=== PATIENT | female | born 1980 | race Caucasian/White ===

== ENCOUNTER 2024-08-20 18:57 | Inpatient (IN) | payer MEDICAID ==
[~2024-08-20] VITALS: Ht 165.1 cm; Wt 55.0 kg
[~2024-08-20 18:57] MED LIST: CEFT2FRO2 IV; DEXL60CA3 PO; FENT1PAT13 TD; HYDR-4353 PO; LUBI8CAP PO; ONDA8TAB9 PO; POTA20IV IV
[2024-08-20 19:19] LABS: BILIRUBIN,URINE NEGATIVE (Neg); CLARITY,URINE CLEAR (Clear); COLOR,URINE YELLOW (Yellow); GLUCOSE, URINE NEGATIVE (Neg); KETONES,URINE NEGATIVE (Neg); LEUKOCYTE ESTERASE ,URINE NEGATIVE (Neg); NITRITES, URINE NEGATIVE (Neg); OCCULT BLOOD,URINE SMALL (Neg); PH,URINE 6.5 (4.8-8.0); PROTEIN,URINE TRACE mg/dl (Neg); UROBILINOGEN,URINE 0.2 E.U/dL (0.2-1.0)
[2024-08-20 19:20] LABS: URINE HCG NEGATIVE (NEG)
[2024-08-20] MEDS: normal saline 500ml IV soln 500 ML IV SCH (19:25)
[2024-08-20 19:26] LABS: UA COLLECTION TYPE CLN CATCH MIDSTREAM
[2024-08-20 19:27] LABS: SQUAMOUS EPITHELIAL CELL,UR MODERATE /LPF (FEW)
[2024-08-20 19:29] LABS: BACTERIA,URINE 1+ /HPF (Neg); MUCUS STRANDS FEW /LPF (Neg); RBC,URINE 0-2 /HPF (0-2); WBC,URINE 0-4 /HPF (0-4)
[2024-08-20] MEDS: pantoprazole 40 MG vial IV STA (19:34)
[2024-08-20] MEDS: ondansetron/PF 4mg/2ml inj IV ONE ×2 (19:35→22:30)
[2024-08-20] MEDS: morphine 4 MG/ML inj SYRINge IV ONE (19:35)
[2024-08-20 20:09] LABS: BASOPHILS % (AUTO) 0.1 % (0-1); EOSINOPHILS % (AUTO) 0 % (0-6); HEMATOCRIT 34.5 % (35.0-45.0); HEMOGLOBIN 11.7 g/dl (12.0-16.0); LYMPHOCYTES # (AUTO) 0.2 X10'3 (1.1-4.8); MEAN CORPUSCULAR HEMOGLOBIN 36.6 PG (27.0-31.0); MEAN CORPUSCULAR HGB CONC 33.9 g/dL (33.0-36.5); MEAN CORPUSCULAR VOLUME 107.9 FL (78-98); MEAN PLATELET VOLUME 7.3 FL (7.4-10.4); MONOCYTES # (AUTO) 0.5 X10'3 (0-0.9); MONOCYTES % (AUTO) 4.1 % (2-12); NEUTROPHILS # (AUTO) 10.4 X10'3 (1.8-7.7); NEUTROPHILS % (AUTO) 93.8 % (42-75); PLATELET COUNT 176 X10'3 (140-440); WHITE BLOOD COUNT 11.1 X10'3 (4.5-11.0)
[2024-08-20 20:26] LABS: ALANINE AMINOTRANSFERASE 24 U/L (12-78); ALBUMIN 3.1 G/DL (3.4-5.0); ALBUMIN/GLOBULIN RATIO 1.1 (1.1-1.5); ALKALINE PHOSPHATASE 64 IU/L (46-116); ANION GAP 13 (8-16); ASPARTATE AMINO TRANSFERASE 40 U/L (10-37); BILIRUBIN,TOTAL 1.3 MG/DL (0.1-1.0); BLOOD UREA NITROGEN 5 MG/DL (7-18); BUN/CREATININE RATIO 4.4 (10.0-20.0); CALCIUM 7.6 MG/DL (8.5-10.1); CHLORIDE 108 MMOL/L (99-107); CREATININE 1.14 MG/DL (0.40-0.90); GLUCOSE 150 MG/DL (70-104); SODIUM 144 MMOL/L (135-145); TOTAL PROTEIN 5.8 G/DL (6.4-8.2); eCRCL 56 ML/MIN; eGFR 53 ML/MIN
[2024-08-20 20:27] LABS: LIPASE > 375 U/L (16-77)
[2024-08-20 20:29] LABS: POTASSIUM 2.3 MMOL/L (3.5-5.1)
[2024-08-20] MEDS: ondansetron 4mg rapidly disintigrating tab PO ONE (20:51)
[2024-08-20] MEDS: HYDROmorphone 1 mg/ml syringe IM ONE (20:54)
[2024-08-20 21:02] LABS: ANISOCYTOSIS 2+; PLATELET ESTIMATE NORMAL; POLYCHROMASIA FEW; STOMATOCYTES FEW
[2024-08-20] MEDS: loperamide 2mg capsule PO STA (21:29)
[2024-08-20] MEDS: pantoprazole 40mg Tablet.DR PO STA (21:29)
[2024-08-20] MEDS: POTASSIUM CHLORIDE 20 MEQ/15 ML oral solution PO STA (21:30)
[2024-08-20] MEDS ORDERED: iohexol 300mg/ml 100ml inj. ONE (22:25)
[2024-08-20] MEDS: HYDROmorphone 1 mg/ml syringe IV ONE (22:31)
[2024-08-20] MEDS: potassium CL 10mEq/100ml bag 100 ML IV SCH (22:42)
[2024-08-20] MEDS ORDERED: ertapenem sod inj 1 GM in normal saline 100ml IV soln 100 ML IV SCH (23:40)
[2024-08-21 00:03] LABS: ETHANOL < 10 MG/DL (<10); MAGNESIUM 1.6 MG/DL (1.5-2.4)
[2024-08-21] MEDS: folic acid 1mg tablet PO ONE (00:10)
[2024-08-21] MEDS: thiamine 100mg tablet PO ONE (00:10)
[2024-08-21] MEDS ORDERED: acetaminophen 325mg tablet PO PRN (00:35)
[2024-08-21] MEDS ORDERED: morphine 2 MG/ML inj. syringe IV PRN ×3 (00:35→05:05)
[2024-08-21] MEDS ORDERED: potassium Cl 20 mEq SR tablet PO PRN (00:35)
[2024-08-21] MEDS ORDERED: HYDROmorphone/PF 0.2 MG/ML SYRINGE IV PRN ×2 (00:35→05:05)
[2024-08-21] MEDS ORDERED: magnesium Cl slow-release 64mg tablet PO PRN (00:35)
[2024-08-21] MEDS ORDERED: magnesium hydroxide 30ml (MOM) UD suspension PO PRN (00:35)
[2024-08-21] MEDS ORDERED: magnesium sulf-water 2g/50mL 50 ML IV PRN (00:35)
[2024-08-21] MEDS ORDERED: magnesium sulf-water 4G/100mL 100 ML IV PRN (00:35)
[2024-08-21] MEDS: ringers solution, lacted 1,000 ML IV ONE ×2 (00:51)
[2024-08-21] MEDS: HYDROmorphone 1 mg/ml syringe IV ONE (00:54)
[2024-08-21 01:14] LABS: URINE AMPHETAMINE SCREEN NEGATIVE (Neg); URINE BARBITUATE SCREEN POSITIVE (Neg); URINE BENZODIAZEPINES SCREEN NEGATIVE (Neg); URINE CANNABINOID SCREEN NEGATIVE (Neg); URINE COCAINE SCREEN NEGATIVE (Neg); URINE METHADONE SCREEN NEGATIVE (Neg); URINE OPIATE SCREEN POSITIVE (Neg); URINE PHENCYCLIDINE SCREEN NEGATIVE (Neg)
[2024-08-21] MEDS ORDERED: dicyclomine 10 MG capsule PO PRN (01:15)
[2024-08-21] MEDS ORDERED: haloperidol 5mg tablet PO PRN (01:15)
[2024-08-21] MEDS ORDERED: haloperidol lactate 5mg/ml inj IM PRN (01:15)
[2024-08-21] MEDS: folic acid 1mg/0.2ml inj IV SCH (01:23)
[2024-08-21] MEDS: thiamine 100mg/ml 2ml inj. IV SCH (01:23)
[2024-08-21] MEDS ORDERED: codeine/proMETHazine 5ml UD syrup PO PRN (01:45)
[2024-08-21] MEDS: hydrALAZINE 20mg/ml inj. IV ONE ×3 (01:57→11:57)
[2024-08-21] MEDS: traMADol 50MG tablet PO ONE (02:12)
[2024-08-21] MEDS: ondansetron/PF 4mg/2ml inj IV PRN (02:19)
[2024-08-21] MEDS: acetaminophen 1,000mg/100ml IV 100 ML IV ONE (02:44)
[2024-08-21 03:11] LABS: CHOL/HDL RATIO 1.5 (0.00-4.99); CHOLESTEROL 124 MG/DL (0-200); HDL CHOLESTEROL 85 MG/DL (35-60); LDL CHOLESTEROL 27 MG/DL (50-100); MAGNESIUM 1.6 MG/DL (1.5-2.4); TRIGLYCERIDES 55 MG/DL (20-135)
[2024-08-21 03:15] LABS: POTASSIUM 2.2 MMOL/L (3.5-5.1)
[2024-08-21] MEDS: potassium CL 10mEq/100ml bag 100 ML IV SCH (03:38)
[2024-08-21] MEDS: cloNIDine 0.1 mg tablet PO PRN (04:47)
[2024-08-21] MEDS ORDERED: HYDROmorphone inj. 0.5 MG/0.5 ML DISP.SYRIN IV PRN (05:05)
[2024-08-21] MEDS: LORazepam 2 mg/ml vial IV PRN (05:17)
[2024-08-21] MEDS: ertapenem sod inj 1 GM in normal saline 100ml IV soln 110 ML IV SCH ×2 (05:26→16:58)
[2024-08-21] MEDS ORDERED: Potassium Cl inj 40 MEQ in normal saline 250ml IV soln 250 ML IV ONE (06:30)
[2024-08-21] MEDS: Potassium Cl 40 MEQ in sodium chloride 0.45% 500 ML IV ONE (07:11)
[2024-08-21] MEDS: K and/or MAG REPLACEMENT MC SCH (07:17)
[2024-08-21] MEDS: docusate sod 100mg capsule PO SCH (07:17)
[2024-08-21] MEDS: potassium chloride 8mEq ER tablet PO SCH (08:00)
[2024-08-21] MEDS: enoxaparin 40mg/0.4ml syringe SUBCUT SCH (08:15)
[2024-08-21] MEDS ORDERED: NO HOME MEDS (09:49)
[2024-08-21] MEDS: potassium Cl 40MEQ/1/2NS 520ml 520 ML IV PRN (12:05)
[2024-08-21] MEDS: ringers solution, lacted 1,000 ML IV SCH (12:19)
[2024-08-21] MEDS: VANCOMYCIN 125 MG/5 ML oral SOLN.RECON 5mL UD syringe (FIRVANQ) PO SCH (12:51)
[2024-08-21 14:26] LABS: BASOPHILS % (AUTO) 0.2 % (0-1); EOSINOPHILS % (AUTO) 0 % (0-6); HEMATOCRIT 34.6 % (35.0-45.0); HEMOGLOBIN 11.6 g/dl (12.0-16.0); LYMPHOCYTES # (AUTO) 0.5 X10'3 (1.1-4.8); LYMPHOCYTES % (AUTO) 3.2 % (21-51); MEAN CORPUSCULAR HEMOGLOBIN 36.8 PG (27.0-31.0); MEAN CORPUSCULAR HGB CONC 33.4 g/dL (33.0-36.5); MEAN PLATELET VOLUME 7.9 FL (7.4-10.4); MONOCYTES # (AUTO) 0.6 X10'3 (0-0.9); NEUTROPHILS # (AUTO) 13.3 X10'3 (1.8-7.7); NEUTROPHILS % (AUTO) 92.6 % (42-75); PLATELET COUNT 152 X10'3 (140-440); RED BLOOD COUNT 3.15 X10'6 (4.20-5.60); RED CELL DISTRIBUTION WIDTH 19.1 % (11.5-14.5); WHITE BLOOD COUNT 14.4 X10'3 (4.5-11.0)
[2024-08-21 14:41] LABS: ALANINE AMINOTRANSFERASE 15 U/L (12-78); ALBUMIN 2.7 G/DL (3.4-5.0); ALBUMIN/GLOBULIN RATIO 0.9 (1.1-1.5); ALKALINE PHOSPHATASE 58 IU/L (46-116); ANION GAP 9 (8-16); ASPARTATE AMINO TRANSFERASE 37 U/L (10-37); BILIRUBIN,TOTAL 1.4 MG/DL (0.1-1.0); BLOOD UREA NITROGEN 2 MG/DL (7-18); BUN/CREATININE RATIO 2.4 (10.0-20.0); CALCIUM 7.3 MG/DL (8.5-10.1); CHLORIDE 109 MMOL/L (99-107); CREATININE 0.83 MG/DL (0.40-0.90); GLUCOSE 97 MG/DL (70-104); SODIUM 142 MMOL/L (135-145); TOTAL CARBON DIOXIDE 24.3 MMOL/L (24-32); TOTAL PROTEIN 5.6 G/DL (6.4-8.2); eCRCL 77 ML/MIN; eGFR 76 ML/MIN
[2024-08-21 14:49] LABS: POTASSIUM 2.4 MMOL/L (3.5-5.1)
[2024-08-21] MEDS ORDERED: ertapenem sod inj 1 GM in normal saline 100ml IV soln 100 ML IV SCH (16:10)
[2024-08-21] MEDS ORDERED: ertapenem sod inj 1 GM in normal saline 100ml IV soln 110 ML IV SCH (16:12)
[2024-08-21 20:00] VITALS: RESP 20; O2SAT 99
[2024-08-21] MEDS: morphine 2 MG/ML inj. syringe IV PRN (20:35)
[2024-08-21] MEDS: potassium Cl 20 mEq SR tablet PO PRN (20:37)
[2024-08-21 22:00] VITALS: BP 161/102; PULSE 101; RESP 20; TEMP 100.5; O2SAT 99
[2024-08-22] VITALS (8 sets, daily range): BP systolic 151–164; BP diastolic 96–107; PULSE 98–109; RESP 15–22; TEMP 98.3–99.5; O2SAT 95–100
[2024-08-22] MEDS: HYDROmorphone inj. 0.5 MG/0.5 ML DISP.SYRIN IV PRN (02:25)
[2024-08-22 06:36] LABS: INR 1.1 INR; PROTHROMBIN TIME 11.5 SECONDS (9.0-12.0)
[2024-08-22 06:55] LABS: ALANINE AMINOTRANSFERASE 11 U/L (12-78); ALBUMIN 2.1 G/DL (3.4-5.0); ALBUMIN/GLOBULIN RATIO 0.8 (1.1-1.5); ALKALINE PHOSPHATASE 50 IU/L (46-116); AMYLASE 168 U/L (25-115); ANION GAP 6 (8-16); ASPARTATE AMINO TRANSFERASE 32 U/L (10-37); BILIRUBIN,TOTAL 1.2 MG/DL (0.1-1.0); BLOOD UREA NITROGEN 3 MG/DL (7-18); BUN/CREATININE RATIO 4.5 (10.0-20.0); CHLORIDE 109 MMOL/L (99-107); CREATININE 0.66 MG/DL (0.40-0.90); GLUCOSE 76 MG/DL (70-104); LIPASE 354 U/L (16-77); MAGNESIUM 1.5 MG/DL (1.5-2.4); PHOSPHORUS 2.1 MG/DL (2.3-4.5); SODIUM 142 MMOL/L (135-145); TOTAL CARBON DIOXIDE 27.2 MMOL/L (24-32); TOTAL PROTEIN 4.9 G/DL (6.4-8.2); eCRCL 97 ML/MIN; eGFR > 90 ML/MIN
[2024-08-22 07:01] LABS: BASOPHILS % (AUTO) 0.1 % (0-1); EOSINOPHILS % (AUTO) 0 % (0-6); HEMATOCRIT 31.7 % (35.0-45.0); HEMOGLOBIN 10.6 g/dl (12.0-16.0); LYMPHOCYTES # (AUTO) 0.6 X10'3 (1.1-4.8); LYMPHOCYTES % (AUTO) 5.9 % (21-51); MEAN CORPUSCULAR HEMOGLOBIN 36.9 PG (27.0-31.0); MEAN CORPUSCULAR HGB CONC 33.4 g/dL (33.0-36.5); MEAN CORPUSCULAR VOLUME 110.7 FL (78-98); MEAN PLATELET VOLUME 8.5 FL (7.4-10.4); MONOCYTES # (AUTO) 0.4 X10'3 (0-0.9); MONOCYTES % (AUTO) 3.7 % (2-12); NEUTROPHILS # (AUTO) 9.8 X10'3 (1.8-7.7); NEUTROPHILS % (AUTO) 90.3 % (42-75); PLATELET COUNT 107 X10'3 (140-440); RED BLOOD COUNT 2.86 X10'6 (4.20-5.60); RED CELL DISTRIBUTION WIDTH 18.9 % (11.5-14.5); WHITE BLOOD COUNT 10.9 X10'3 (4.5-11.0)
[2024-08-22 07:21] LABS: POTASSIUM 2.3 MMOL/L (3.5-5.1)
[2024-08-22 10:07] LABS: PLATELET ESTIMATE DECREASED
[2024-08-22 10:13] LABS: ANISOCYTOSIS 2+; HYPOCHROMASIA 1+
[2024-08-22 10:16] LABS: POIKILOCYTOSIS FEW; POLYCHROMASIA FEW; STOMATOCYTES FEW
[2024-08-22] MEDS: potassium 20mEq/D5LR 1,000 ML IV SCH (11:14)
[2024-08-22 14:42] LABS: OCCULT BLOOD STOOL NEGATIVE (Neg)
[2024-08-22 15:18] LABS: C DIFF ANTIGEN NEGATIVE (NEGATIVE); C DIFF SPECIMEN=DIARRHEA? ACCEPTABLE; C DIFFICILE TOXINS A&B NEGATIVE (Neg)
[2024-08-22] MEDS ORDERED: sodium phosphate inj. 15 MMOL in dextrose 5%-water 250 ML IV PRN (16:55)
[2024-08-22] MEDS ORDERED: calcium gluconate inj. 3 GM in normal saline 100ml IV soln 100 ML IV ONE (16:55)
[2024-08-22] MEDS ORDERED: sodium phosphate inj. 30 MMOL in dextrose 5%-water 250 ML IV PRN (16:55)
[2024-08-22] MEDS ORDERED: Neutra Phos packet PO PRN (16:55)
[2024-08-22] MEDS ORDERED: HYDROcodone/acetaminophen 5mg/325mg tablet 1/2 TAB PO PRN (19:10)
[2024-08-22] MEDS: HYDROcodone/acetaminophen 10/325mg tab PO PRN (19:30)
[2024-08-22] MEDS: calcium gluconate inj. 3 GM in normal saline 100ml IV soln 70 ML IV ONE (20:42)
[2024-08-23] MEDS: LORazepam 2 mg/ml vial IV PRN (02:50)
[2024-08-23 06:00] LABS: BASOPHILS % (AUTO) 0.3 % (0-1); EOSINOPHILS % (AUTO) 0 % (0-6); HEMATOCRIT 26.3 % (35.0-45.0); HEMOGLOBIN 8.6 g/dl (12.0-16.0); LYMPHOCYTES # (AUTO) 0.8 X10'3 (1.1-4.8); MEAN CORPUSCULAR HEMOGLOBIN 36.8 PG (27.0-31.0); MEAN CORPUSCULAR HGB CONC 32.9 g/dL (33.0-36.5); MEAN CORPUSCULAR VOLUME 111.9 FL (78-98); MEAN PLATELET VOLUME 8.4 FL (7.4-10.4); MONOCYTES # (AUTO) 0.3 X10'3 (0-0.9); MONOCYTES % (AUTO) 4.2 % (2-12); NEUTROPHILS # (AUTO) 6.2 X10'3 (1.8-7.7); NEUTROPHILS % (AUTO) 84.5 % (42-75); PLATELET COUNT 113 X10'3 (140-440); RED BLOOD COUNT 2.35 X10'6 (4.20-5.60); RED CELL DISTRIBUTION WIDTH 17.6 % (11.5-14.5); WHITE BLOOD COUNT 7.3 X10'3 (4.5-11.0)
[2024-08-23 06:14] LABS: INR 1.1 INR; PROTHROMBIN TIME 11.4 SECONDS (9.0-12.0)
[2024-08-23 06:34] LABS: ALANINE AMINOTRANSFERASE 8 U/L (12-78); ALBUMIN 1.7 G/DL (3.4-5.0); ALBUMIN/GLOBULIN RATIO 0.6 (1.1-1.5); ALKALINE PHOSPHATASE 38 IU/L (46-116); AMYLASE 91 U/L (25-115); ANION GAP 3 (8-16); ASPARTATE AMINO TRANSFERASE 28 U/L (10-37); BILIRUBIN,TOTAL 0.7 MG/DL (0.1-1.0); BLOOD UREA NITROGEN 3 MG/DL (7-18); BUN/CREATININE RATIO 4.5 (10.0-20.0); CALCIUM 7.7 MG/DL (8.5-10.1); CHLORIDE 112 MMOL/L (99-107); CREATININE 0.67 MG/DL (0.40-0.90); GLUCOSE 96 MG/DL (70-104); LIPASE 153 U/L (16-77); MAGNESIUM 1.6 MG/DL (1.5-2.4); POTASSIUM 4.4 MMOL/L (3.5-5.1); SODIUM 140 MMOL/L (135-145); TOTAL CARBON DIOXIDE 25.5 MMOL/L (24-32); TOTAL PROTEIN 4.6 G/DL (6.4-8.2); eCRCL 96 ML/MIN; eGFR > 90 ML/MIN
[2024-08-23 06:41] LABS: PHOSPHORUS 0.5 MG/DL (2.3-4.5)
[2024-08-23 07:14] VITALS: BP 130/81; PULSE 97; RESP 20; TEMP 98.6; O2SAT 98
[2024-08-23] MEDS ORDERED: sodium phosphate inj. 30 MMOL in dextrose 5%-water 250 ML IV PRN (07:35)
[2024-08-23] MEDS ORDERED: sodium phosphate inj. 15 MMOL in dextrose 5%-water 250 ML IV PRN (07:35)
[2024-08-23 08:00] VITALS: RESP 16
[2024-08-23] MEDS: sodium phosphate inj. 30 MMOL in dextrose 5%-water 250 ML IV ONE (09:35)
[2024-08-23 10:43] VITALS: RESP 20; O2SAT 98
[2024-08-23] MEDS: LORazepam 1 MG tablet PO PRN (11:05)
[2024-08-23 19:50] VITALS: RESP 16; O2SAT 98
[2024-08-23 19:56] VITALS: BP 163/111; PULSE 96; RESP 16; TEMP 98.6; O2SAT 97
[2024-08-24] VITALS (8 sets, daily range): BP systolic 133–168; BP diastolic 84–107; PULSE 76–98; RESP 15–18; TEMP 97.6–98.3; O2SAT 97–100
[2024-08-24 05:46] LABS: BASOPHILS % (AUTO) 0.2 % (0-1); EOSINOPHILS % (AUTO) 0.8 % (0-6); LYMPHOCYTES # (AUTO) 0.8 X10'3 (1.1-4.8); LYMPHOCYTES % (AUTO) 16.5 % (21-51); MEAN CORPUSCULAR HEMOGLOBIN 37.5 PG (27.0-31.0); MEAN CORPUSCULAR HGB CONC 33.5 g/dL (33.0-36.5); MEAN PLATELET VOLUME 7.9 FL (7.4-10.4); MONOCYTES # (AUTO) 0.3 X10'3 (0-0.9); MONOCYTES % (AUTO) 5.6 % (2-12); NEUTROPHILS # (AUTO) 3.6 X10'3 (1.8-7.7); NEUTROPHILS % (AUTO) 76.9 % (42-75); PLATELET COUNT 124 X10'3 (140-440); RED BLOOD COUNT 2.14 X10'6 (4.20-5.60); RED CELL DISTRIBUTION WIDTH 17.4 % (11.5-14.5); WHITE BLOOD COUNT 4.7 X10'3 (4.5-11.0)
[2024-08-24 06:17] LABS: ALANINE AMINOTRANSFERASE 11 U/L (12-78); ALBUMIN 1.6 G/DL (3.4-5.0); ALBUMIN/GLOBULIN RATIO 0.6 (1.1-1.5); ALKALINE PHOSPHATASE 38 IU/L (46-116); AMYLASE 134 U/L (25-115); ANION GAP 4 (8-16); ASPARTATE AMINO TRANSFERASE 15 U/L (10-37); BILIRUBIN,TOTAL 0.4 MG/DL (0.1-1.0); BLOOD UREA NITROGEN 2 MG/DL (7-18); BUN/CREATININE RATIO 3.3 (10.0-20.0); CALCIUM 7.4 MG/DL (8.5-10.1); CHLORIDE 109 MMOL/L (99-107); GLUCOSE 94 MG/DL (70-104); LIPASE 226 U/L (16-77); MAGNESIUM 1.4 MG/DL (1.5-2.4); POTASSIUM 4.2 MMOL/L (3.5-5.1); SODIUM 140 MMOL/L (135-145); TOTAL CARBON DIOXIDE 27.2 MMOL/L (24-32); TOTAL PROTEIN 4.3 G/DL (6.4-8.2); eCRCL 107 ML/MIN; eGFR > 90 ML/MIN
[2024-08-24 06:35] LABS: INR 1.1 INR; PROTHROMBIN TIME 11.3 SECONDS (9.0-12.0)
[2024-08-24] MEDS: Neutra Phos packet PO PRN (08:38)
[2024-08-24] MEDS: magnesium Cl slow-release 64mg tablet PO PRN (10:22)
[2024-08-24] MEDS: ringers solution, lacted 1,000 ML IV SCH (16:10)
[2024-08-24] MEDS: dextrose 5%-lactated ringers 1,000 ML IV SCH (17:38)
[2024-08-24] MEDS ORDERED: magnesium sulf-water 4G/100mL 100 ML IV PRN (20:45)
[2024-08-24] MEDS ORDERED: magnesium Cl slow-release 64mg tablet PO PRN (20:45)
[2024-08-24] MEDS ORDERED: magnesium sulf-water 2g/50mL 50 ML IV PRN (20:45)
[2024-08-24] MEDS: folic acid 1mg tablet PO SCH (20:54)
[2024-08-24] MEDS: multivitamins, therapeutics tablet PO SCH (20:55)
[2024-08-24] MEDS: thiamine 100mg tablet PO SCH (20:55)
[2024-08-25] VITALS: BP 141/89; PULSE 98; RESP 15; TEMP 98.6; O2SAT 98
[2024-08-25] MEDS ORDERED: LORazepam 2 mg/ml vial IV PRN (01:15)
[2024-08-25 06:11] LABS: BASOPHILS % (AUTO) 0.4 % (0-1); HEMATOCRIT 27.2 % (35.0-45.0); HEMOGLOBIN 9.1 g/dl (12.0-16.0); LYMPHOCYTES # (AUTO) 0.8 X10'3 (1.1-4.8); LYMPHOCYTES % (AUTO) 19.2 % (21-51); MEAN CORPUSCULAR HEMOGLOBIN 37.1 PG (27.0-31.0); MEAN CORPUSCULAR HGB CONC 33.3 g/dL (33.0-36.5); MEAN CORPUSCULAR VOLUME 111.2 FL (78-98); MEAN PLATELET VOLUME 7.8 FL (7.4-10.4); MONOCYTES # (AUTO) 0.4 X10'3 (0-0.9); MONOCYTES % (AUTO) 9.1 % (2-12); NEUTROPHILS # (AUTO) 3.1 X10'3 (1.8-7.7); NEUTROPHILS % (AUTO) 70.3 % (42-75); PLATELET COUNT 194 X10'3 (140-440); RED BLOOD COUNT 2.44 X10'6 (4.20-5.60); RED CELL DISTRIBUTION WIDTH 17.2 % (11.5-14.5); WHITE BLOOD COUNT 4.3 X10'3 (4.5-11.0)
[2024-08-25 06:18] LABS: ALANINE AMINOTRANSFERASE 11 U/L (12-78); ALBUMIN 1.8 G/DL (3.4-5.0); ALBUMIN/GLOBULIN RATIO 0.6 (1.1-1.5); ALKALINE PHOSPHATASE 45 IU/L (46-116); AMYLASE 228 U/L (25-115); ANION GAP 3 (8-16); ASPARTATE AMINO TRANSFERASE 17 U/L (10-37); BILIRUBIN,TOTAL 0.4 MG/DL (0.1-1.0); BLOOD UREA NITROGEN 0 MG/DL (7-18); CALCIUM 7.9 MG/DL (8.5-10.1); CHLORIDE 105 MMOL/L (99-107); CREATININE 0.65 MG/DL (0.40-0.90); GLUCOSE 82 MG/DL (70-104); MAGNESIUM 1.5 MG/DL (1.5-2.4); POTASSIUM 4.2 MMOL/L (3.5-5.1); SODIUM 137 MMOL/L (135-145); TOTAL CARBON DIOXIDE 28.9 MMOL/L (24-32); TOTAL PROTEIN 4.9 G/DL (6.4-8.2); eCRCL 99 ML/MIN; eGFR > 90 ML/MIN
[2024-08-25 06:37] LABS: INR 1.1 INR; PROTHROMBIN TIME 11.5 SECONDS (9.0-12.0)
[2024-08-25 07:08] VITALS: BP 130/86; PULSE 89; RESP 18; TEMP 98.3; O2SAT 98
[2024-08-25 07:11] LABS: LIPASE > 375 U/L (16-77)
[2024-08-25] MEDS: LORazepam 1 MG tablet PO PRN (07:34)
[2024-08-25] MEDS: mag hydrox/Alum hydrox/simeth 30ml oral suspension PO PRN (07:47)
[2024-08-25 07:55] VITALS: RESP 18; O2SAT 98
[2024-08-25] MEDS ORDERED: HYDROcodone/acetaminophen 5mg/325mg tablet PO PRN (09:50)
[2024-08-25 11:12] VITALS: BP 138/92; PULSE 91; RESP 16; TEMP 97.6; O2SAT 98
[2024-08-25] MEDS ORDERED: thiamine tablet PO (14:40)
[2024-08-25] MEDS ORDERED: FOLI1TAB27 PO (14:40)
[2024-08-25] MEDS ORDERED: MULT-25 PO (14:46)
[2024-08-25 14:51] VITALS: RESP 18
[2024-08-25] MEDS ORDERED: HYDR-3965 PO (15:07)
[2024-08-25 15:21] LABS: FATS, NEUTRAL Normal (.); FATS, TOTAL Normal (.)
== END 2024-08-25 15:32 | disposition home or self-care (01) | DRG 282 ==
LOC: ER 18:57 → ED HOLD 08-21 00:38 → SUR 3N 08-21 20:10
PROVIDERS: ADMIT Student in an Organized Health Care Education/Training Program; ATTEND Family Medicine
PROC: BW251ZZ Computerized Tomography (CT Scan) of Chest, Abdomen and Pelvis using Low Osmolar Contrast (ICD-10-PCS; principal; 2024-08-20)
DX: K85.21 Alcohol induced acute pancreatitis with uninfected necrosis (principal); N17.9 Acute kidney failure, unspecified; F10.131 Alcohol abuse with withdrawal delirium; E87.8 Other disorders of electrolyte and fluid balance, not elsewhere classified; E83.39 Other disorders of phosphorus metabolism; E86.0 Dehydration; D53.9 Nutritional anemia, unspecified; E87.6 Hypokalemia; Y90.0 Blood alcohol level of less than 20 mg/100 ml; R73.9 Hyperglycemia, unspecified; I10 Essential (primary) hypertension; K52.9 Noninfective gastroenteritis and colitis, unspecified; E83.42 Hypomagnesemia; K92.1 Melena; Z88.1 Allergy status to other antibiotic agents; Z88.8 Allergy status to other drugs, medicaments and biological substances; Z91.018 Allergy to other foods
CPT/HCPCS: 36415; 71260; 74177; 76700; 80053; 80061; 80305; 80320; 81001; 81025; 82150; 82272; 82948; 83605; 83690; 83735; 84100; 84132; 84145; 85008; 85025; 85610; 87040; 87081; 87324; 87449; 89055; 96374; 96375; 97116; 97161; 97530; 99285; G0378; J0131; J0360; J0610; J1171; J1335; J1650; J2060; J2270; J2405; J3411; J3480; J3490; J7030; J7040; J7060; J7120; J7121; Q9967

== ENCOUNTER 2025-05-11 10:41 | Inpatient (IN) | payer MEDICAID ==
[~2025-05-11] VITALS: Ht 165.1 cm; Wt 40.4 kg
[~2025-05-11 10:41] MED LIST changes: -CEFT2FRO2 IV; -DEXL60CA3 PO; -FENT1PAT13 TD; +FOLI1TAB27 PO; -HYDR-4353 PO; -LUBI8CAP PO; +MULT-25 PO; +NO HOME MEDS; -ONDA8TAB9 PO; -POTA20IV IV; +thiamine tablet PO
[2025-05-11 11:41] LABS: MEAN PLATELET VOLUME 8.3 FL (7.4-10.4); RED CELL DISTRIBUTION WIDTH 14.4 % (11.5-14.5)
[2025-05-11 11:50] LABS: INR 1.5 INR
[2025-05-11 11:55] LABS: CREATININE 1.08 MG/DL (0.40-0.90); TOTAL CARBON DIOXIDE 30.7 MMOL/L (24-32); eCRCL 43 ML/MIN; eGFR 56 ML/MIN
[2025-05-11 12:00] LABS: UA COLLECTION TYPE CLN CATCH MIDSTREAM
[2025-05-11 12:02] LABS: LEUKOCYTE ESTERASE ,URINE TRACE (Neg); NITRITES, URINE NEGATIVE (Neg); OCCULT BLOOD,URINE NEGATIVE (Neg)
[2025-05-11 12:04] LABS: SQUAMOUS EPITHELIAL CELL,UR MANY /LPF (FEW)
[2025-05-11 12:04] LABS: URINE HCG POSITIVE (NEG)
[2025-05-11 12:05] LABS: COARSE GRANULAR CAST 0-3 /LPF (NEGATIVE)
[2025-05-11] MEDS: potassium Cl 20 mEq SR tablet PO STA (12:20)
[2025-05-11] MEDS: Potassium Cl inj 40 MEQ in normal saline 500ml IV soln 500 ML IV ONE (12:28)
--- NOTE | 2025-05-11 12:29 | ELECTROCARDIOGRAPH REPORT ---
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
[2025-05-11] MEDS: ondansetron/PF 4mg/2ml inj IV ONE (12:35)
--- NOTE | 2025-05-11 12:45 | Physician Documentation ---
History of Present Illness ~ Chief Complaint: Bloody Emesis Stated Complaint: BLOODY EMESIS,DIARRHEA Time Seen by MD: 12:07 OK to notify your PCP?: Yes Primary Medical Doctor: Janett adam) Source: patient Mode of Arrival: Ambulatory Exam Limitations: no limitations HPI This is a 44-year-old female who comes in complaining of possible GI bleed. The patient states she has had some this is dark red blood in her stool and also states today she had vomiting with coffee-ground emesis. She complains of generalized abdominal pain. She states she is still has a gallbladder and her appendix. She denies fevers or chills. She denies change in bladder habits. She says she has a history of complex regional pain syndrome in her spine and has a spinal stimulator. The patient states she has also been losing weight over the past couple of weeks. She does admit to see light frequent alcohol use. Medication Reconciliation Allergies: Coded Allergies: Erythromycin Lactobionate (Verified Allergy, Unknown, 05/11/25) avocado (Verified Allergy, Unknown, 05/11/25) chlorhexidine (Verified Allergy, Unknown, CAUSES HIVES, 05/11/25) diazepam (Verified Allergy, Unknown, 05/11/25) metoclopramide (Unverified Allergy, Unknown, 05/11/25) Uncoded Allergies: cantalope (Allergy, Severe, 12/06/14) reaction: swollen throat Scheduled Folic Acid* (Folic Acid*), 1 MG PO DAILY Multivitamin with Folic Acid (Thera Tablet), 1 EACH PO DAILY [thiamine tablet], 100 MG PO BID Miscellaneous Medications Home Med List (No Home Medications), (Reported) Past Medical History Past Surgical History: other Other Past Surgical History: TPN, spinal surgeryx2 Patient History: No Family History of: (CABG) Coronary artery bypass grafting (CAD) Coronary arteriosclerosis (CHF) Congestive heart failure (COPD) Chronic obstructive lung disease (CVA) Cerebrovascular accident (Cancer) Malignant carcinoid tumor (DM Type 2) Diabetes mellitus type 2 (DM Type1) Diabetes mellitus type 1 (NC) Myocardial infarction (PVD) Peripheral vascular disease (TIA) Transient ischemic attack Alzheimer's disease Aortic aneurysm Cardiac arrest Hypercholesterolemia Alcohol Use: None Drug Use: none Lives In: Home Physical Exam Vital Signs: Temperature: 99.9, Source: Temporal, Heart Rate: 83, Respiratory Rate: 24, BP: 130/93, Pulse Oximetry: 99, Weight: 40.350 Oxygen Flow Rate: 0 Pulse Oximetry Reflects: adequate oxygenation General Appearance: alert, WD/WN, no apparent distress Respiratory No accessory muscle use or retractions. Lungs are clear to auscultation all marley. Cardiovascular No rubs, gallops or murmurs. No peripheral edema, cyanosis or clubbing of the extremities Gastrointestinal There is tenderness to palpation of the right upper abdomen. Negative Peck's sign or McBurney's point tenderness. No rigidity, rebound or guarding. No distention. Rectal: normal exam, normal rectal tone, brown stool Guaiac Test: guaiac negative Back: no CVA tenderness Skin: normal color, warm/dry Progress Results/Orders Reviewed/noted all lab results: Yes Results/Orders Orders - WILMER AGUERO Pantoprazole 40mg Iv (Protonix 40mg Iv) (05/12/25 08:00) Ct Abdomen Pelvis (05/11/25 14:19) Piperacillin/Tazo 3.375gm/50ml (Zosyn 3. (05/11/25 17:10) Page Hospitalist (05/11/25 17:17) Completed Orders - WILMER AGUERO Pt Inr (05/11/25 11:01) Potassium Cl Inj (Potassium Cl Inj) (05/11/25 12:10) Potassium Cl Sr Tablet (K-Dur Tablet) (05/11/25 12:07) Ondansetron Inj. (Zofran 4mg/2ml Vial) (05/11/25 12:30) Normal Saline 1000ml (0.9% Sodium Chlori (05/11/25 12:45) Occult Bld Stool (05/11/25 12:50) Ct Abdomen Pelvis (05/11/25 14:19) Iohexol 300mg/Ml 100ml Inj. (Omnipaque-3 (05/11/25 14:06) K (05/11/25 15:24) Medications Received in ER Medications (Trade) Dose Ordered Sig/Ousmane Route PRN Reason Start Time Stop Time Status Last Admin Dose Admin Potassium Chloride 40 meq/ Sodium Chloride 520 ml @ 130 mls/hr ONCE ONCE IV 05/11/25 12:10 05/11/25 16:09 DC 05/11/25 12:28 130 MLS/HR (K-DUR tablet) 20 meq ONCE STAT PO 05/11/25 12:07 05/11/25 12:11 DC 05/11/25 12:20 20 MEQ (Zofran 4mg/2ml vial) 4 mg ONCE ONCE IV 05/11/25 12:30 05/11/25 12:31 DC 05/11/25 12:35 4 MG Sodium Chloride 1,000 ml @ 1,000 mls/hr ONCE ONCE IV 05/11/25 12:45 05/11/25 13:44 DC 05/11/25 12:56 1,000 MLS/HR Vital Signs 05/11/25 05/11/25 05/11/25 05/11/25 10:44 12:02 12:24 13:00 Temp 99.9 Pulse 96 83 81 Resp 18 24 17 B/P (MAP) 135/102 130/93 (105) 130/97 (108) Pulse Ox 99 99 99 O2 Flow Rate 0 0 0 05/11/25 05/11/25 05/11/25 14:00 15:00 16:00 Pulse 76 74 77 Resp 14 12 16 B/P (MAP) 118/89 (99) 125/95 (105) 137/99 (112) Pulse Ox 100 100 99 O2 Flow Rate 0 0 0 Laboratory Tests Test 05/11/25 10:48 05/11/25 10:49 05/11/25 11:14 05/11/25 12:50 Urine HCG, Qualitative Positive Urine Specimen Description Cln catch midstream Urine Color Yellow Urine Clarity Slightly cloudy Urine pH 6.0 Urine Specific [place] <=1.005 Urine Protein 30 H Urine Glucose (UA) Negative Urine Ketones Trace H Urine Occult Blood Negative Urine Nitrite Negative Urine Bilirubin Small Urine Urobilinogen 0.2 Urine Leukocyte Esterase Trace H Urine RBC 0-2 Urine WBC 5-10 H Urine Squamous Epithelial Cells Many Urine Transitional Epithelial Cells Many Urine Bacteria Few Urine Coarse Granular Casts 0-3 Urine Culture Indicated Rejected for culture Volume Urine Centrifuged 10 ml Urine Comment White Blood Count 3.9 L Red Blood Count 4.57 Hemoglobin 15.3 Hematocrit 44.0 Mean Corpuscular Volume 96.2 Mean Corpuscular Hemoglobin 33.4 H Mean Corpuscular Hemoglobin Concent 34.7 Red Cell Distribution Width 14.4 Platelet Count 424 Mean Platelet Volume 8.3 Neutrophils (%) (Auto) 63.4 Lymphocytes (%) (Auto) 25.1 Monocytes (%) (Auto) 9.7 Eosinophils (%) (Auto) 0.4 Basophils (%) (Auto) 1.4 H Neutrophils # (Auto) 2.5 Lymphocytes # (Auto) 1.0 L Monocytes # (Auto) 0.4 Eosinophils # (Auto) 0.0 Basophils # (Auto) 0.1 CBC Comment Prothrombin Time 14.9 H INR International Normalized Ratio 1.5 Coagulation Comments Sodium Level 140 Potassium Level 1.6 *L Chloride Level 98 L Carbon Dioxide Level 30.7 Anion Gap 11 Blood Urea Nitrogen 4 L Creatinine 1.08 H Estimated GFR/1.73 m2 56 BUN/Creatinine Ratio 3.7 L Glucose Level 125 H Calcium Level 8.7 Total Bilirubin 0.8 Aspartate Amino Transf (AST/SGOT) 68 H Alanine Aminotransferase (ALT/SGPT) 27 Alkaline Phosphatase 119 H Total Protein 6.6 Albumin 3.3 L Globulin 3.3 Albumin/Globulin Ratio 1.0 L Lipase 22 HCG Beta Subunit 6 Chemistry Comments Stool Occult Blood Negative Test 05/11/25 15:45 Potassium Level 2.6 *L EKG/XRAY/CT/US/VASC/MRI EKG : Intepreting Monitor?: No Additional Comment Follow up future use interpreted by me: Sinus rhythm rate of 72. Borderline short [place] interval. Our so I in V1 or V2 probably normal variant. Nonspecific repolarization abnormality diffuse leads. We are lung prolonged QT interval. Medical Decision Making Findings This far the patient has workup showed a potassium of 1.6 which was addressed with 40 mEq IV potassium and 20 mEq p.o. K-Dur. The patient had a CT scan of the abdomen and pelvis with IV contrast which showed diffuse colitis as well as a 2.1 cm mass in the head with the pancreas which was not completely differ entiated on the CT scan and MRI with IV contrast was suggested. The patient's urine HCG was elevated however she states that is impossible for her to be and her serum beta HCG was normal. I suspect this could potentially be to the tumor such as a pancreatic tumor which was found on the CT scan. The patient is still having nausea and vomiting as well as pain. I discussed options with the patient and I will put a call to the hospital for possible admission. Regarding the colitis I addressed this with 3.375 g IV Zosyn. I spoke with Dr. Clancy who will admit the patient to Medicine. The patient will go to the ortho floor. Additional Comments Nothing gastritis. Hematemesis. Coffee-ground emesis. GI bleed. Melena. Hematochezia. Departure Disposition: ADMITTED INPATIENT Admitted to Inpatient Unit: yes, to hospitalist (Julieth) Admission Level of Care: Ortho Impression: Primary Impression: Hypokalemia Additional Impressions: Colitis Pancreatic mass Condition: Stable Referrals: NO PRIMARY CARE PROVIDER (PCP) Signature Scribe Signature: No Scribe Attestation: The note accurately reflects work and decisions made by me.Wilmer DURAN 05/11/25 17:55 WILMER AGUERO May 11, 2025 12:45
[2025-05-11] MEDS: normal saline 1000ml 1,000 ML IV ONE (12:56)
[2025-05-11] MEDS ORDERED: iohexol 300mg/ml 100ml inj. ONE (14:06)
[2025-05-11 14:37] LABS: OCCULT BLOOD STOOL NEGATIVE (Neg)
--- NOTE | 2025-05-11 14:59 | RADIOLOGY REPORT ---
Exam: CT CT ABDOMEN PELVIS W/ IV CONTRAST History: Abdominal pain with the weight loss COMPARISON: None Technique: Multidetector spiral CT of the abdomen and pelvis was performed from lung bases to pubic symphysis. Intravenous contrast was administered during this examination. Portal venous imaging was obtained. Axial, coronal and sagittal multiplanar reformats were performed by the technologist on a separate workstation. Radiation Dose : Abdomen/Pelvis: CTDIvol 5 mGy, DLP 323 mGy*cm. CONTRAST: Type of contrast: Omni 300 Contrast injected: 100 mL Findings: Lung Bases: No acute or significant lung base finding. Normal heart size. No pleural or pericardial effusion. Liver: Diffuse hepatic steatosis. Gallbladder and biliary Tree: Unremarkable Spleen: Unremarkable Pancreas: Multiple cystic lesions in the head of the pancreas measuring up to 21 mm. Hypoenhancement in the tail of the pancreas. Adrenal Glands: Unremarkable Kidneys: No hydronephrosis. Bladder: Unremarkable Bowel: The stomach is grossly normal in appearance. Small bowel and colon are normal in caliber and d istribution. Normal appendix is visualized in the right lower quadrant without findings of appendicit is. Diffuse wall thickening of the colon. Ascites: Absent Lymphadenopathy: No mesenteric, retroperitoneal or periportal lymphadenopathy. Abdominal wall and Mesentery: Unremarkable. Vasculature: The visualized abdominal aorta is normal in size and caliber. Abdominal and pelvic vess els demonstrate normal enhancement. Pelvic Organs: Unremarkable Musculoskeletal: No aggressive focal bony lesions, acute fractures or dislocation. IMPRESSION: 1. No acute abdominal or pelvic finding. 2. Cystic lesions in the head of the pancreas measuring up to 21 mm. Hypoenhancement in the tail of the pancreas. Recommend MRI of the abdomen with contrast for further evaluation. 3. Diffuse hepatic steatosis. Diffuse wall thickening of the colon could be due to infectious or infl ammatory colitis. Clinical correlation and continued follow-up is recommended. Radiation optimization: All CT scans at this facility use at least one of these dose optimization helga hniques: Automated exposure control mA and/or kV adjustment per patient size (includes targeted exams where dose is matched to clinical indication) or iterative reconstruction. HS:Y
[2025-05-11] MEDS: piperacillin/tazo 3.375gm/50ml 50 ML IV ONE (18:04)
[2025-05-11] MEDS ORDERED: magnesium sulf-water 4G/100mL 100 ML IV PRN (18:25)
[2025-05-11] MEDS ORDERED: magnesium sulf-water 2g/50mL 50 ML IV PRN (18:25)
[2025-05-11] MEDS ORDERED: potassium Cl 20 mEq SR tablet PO PRN (18:25)
[2025-05-11] MEDS ORDERED: ondansetron/PF 4mg/2ml inj IV PRN ×2 (18:25→23:31)
[2025-05-11] MEDS ORDERED: magnesium Cl slow-release 64mg tablet PO PRN (18:25)
[2025-05-11] MEDS ORDERED: HYDROcodone/acetaminophen 5mg/325mg tablet PO PRN (18:25)
[2025-05-11] MEDS ORDERED: haloperidol lactate 5mg/ml inj IM PRN (18:40)
--- NOTE | 2025-05-11 18:46 | HISTORY AND PHYSICAL ---
History & Physical Providers to CC ~ History of Present Illness Reason for Admit\Complaint: Vomiting nausea and diarrhea since 10 days History of Present Illness Patient is 44-year-old female with history of acute necrotizing pancreatitis secondary to alcohol use, complex regional pain syndrome with stimulator placement, history of chronic headache. Patient is here in ER with her concern regarding vomiting nausea and diarrhea which is going on since last 10 day ( she waited to see if her symptoms will get better) she feels that she gets these symptoms off and on but it gets better. Patient feels pain over upper abdomen which is like a stabbing pain. Her stools are watery like a cabbage soup. She mentioned that she is passing 328 stools per day. Patient is nauseated but no fever noticed. Patient has generalized abdominal pain but at the same time she has chronic pain syndrome and chronic pancreatitis too. Patient is unable to provide me any medication list but she mentioned that she is taking [place] leftover tablets from August 2024 which was prescribed to her in her last visit. Patient does not have any primary care physician or specialist at this point of time and she mentioned nobody wants to take her anymore as a patient. She is drinking mixed vodka occasionally unable to recall when was the last drink she had ( she has history of acute necrotizing pancreatitis in her last visit August 26, 2024) . Denied use of any tobacco or any recreational drugs. Further workup done in ER her potassium was 1.6 in signs of acute kidney injury noticed hospitalist services contacted for admission and further admission. Patient's urine HCG was positive but her serum beta HCG was negative we will repeat urine HCG. 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 Currently staying with her mom for couple of week. She can ambulate. Patient also mentioned that she gets chest pain chronic headache and numbness and tingling sensation besides what is mentioned above. Allergies: Coded Allergies: Erythromycin Lactobionate (Verified Allergy, Unknown, 05/11/25) avocado (Verified Allergy, Unknown, 05/11/25) chlorhexidine (Verified Allergy, Unknown, CAUSES HIVES, 05/11/25) diazepam (Verified Allergy, Unknown, 05/11/25) metoclopramide (Unverified Allergy, Unknown, 05/11/25) Uncoded Allergies: cantalope (Allergy, Severe, 12/06/14) reaction: swollen throat Home Medications Home Medications Active Thera Tablet (Multivitamin with Folic Acid) 400 Mcg Tablet 1 Each PO DAILY 30 Days [thiamine tablet] 100 MG Tablet 100 Mg PO BID 30 Days Folic Acid* (Folic Acid) Y Tab 1 Mg PO DAILY 30 Days Reported No Home Medications (Home Med List) Each Family History Family History: No Family History of: (CABG) Coronary artery bypass grafting (CAD) Coronary arteriosclerosis (CHF) Congestive heart failure (COPD) Chronic obstructive lung disease (CVA) Cerebrovascular accident (Cancer) Malignant carcinoid tumor (DM Type 2) Diabetes mellitus type 2 (DM Type1) Diabetes mellitus type 1 ([place]) Myocardial infarction (PVD) Peripheral vascular disease (TIA) Transient ischemic attack Alzheimer's disease Aortic aneurysm Cardiac arrest Hypercholesterolemia Past Social History Social History Comment Patient is currently not working and she is a stay at home for 22-year-old daughter. Currently staying with her mom for couple of week. She can ambulate. Her oldest daughter in her mom Zoie is the POA for the patient . ROS ROS Review of system as mentioned above in HPI rest of the review of system unremarkable. Exam Vitals: Vital Signs Date Time Temp Pulse Resp B/P (MAP) Pulse Ox O2 Delivery O2 Flow Rate FiO2 05/11/25 16:00 77 16 137/99 (112) 99 0 05/11/25 10:44 99.9 General: General-patient not in any acute distress, alert awake oriented, chronically ill-appearing/age-appropriate/looks comfortable/lethargic HEENT-atraumatic normocephalic, neck supple without elevated JVD, no thyromegaly or carotid bruit. No lymphadenopathy bilaterally. Eyes-no icterus or pallor seen in eyes Chest-clear to auscultation bilaterally, breathing nonlabored no tachypnea, no wheezing, no crepitation, no crackles. Examination of the chest was unremarkable. No asymmetry and no other abnormality noticed. Heart-S1-S2 normal, regular heart rate no murmur Abdomen bowel sounds positive on auscultation, soft nondistended nontender no guarding, no rigidity Skin no active skin rash/signs of chronic hyperpigmentation present over lower extremity Neurology-grossly intact, nonfocal alert awake oriented Extremity- no pedal edema able to move all 4 extremities/ambulate Psychiatry - patient is not confused or agitated cooperated well during physical examination Diagnostic Data Last Recorded Lab Results: 05/11/25 1114 05/11/25 1545 Diagnostic Data: Laboratory Tests Test 05/11/25 11:14 Prothrombin Time 14.9 SECONDS (9.0-12.0) H INR International Normalized Ratio 1.5 INR Coagulation Comments Additional Plan Patient is 44-year-old female with history of acute necrotizing pancreatitis secondary to alcohol use, complex regional pain syndrome with stimulator placement, history of chronic headache. Patient is here in ER with her concern regarding vomiting nausea and diarrhea Further workup done in ER her potassium was 1.6 in signs of acute kidney injury noticed hospitalist services contacted for admission and further admission. Patient is admitted for hypokalemia generalized weakness , nausea vomiting in diarrhea . We will do the replacement of potassium as per protocol. Patient is started on IV fluid for acute kidney injury. we will continue to monitor patient's chronic more morbidity including chronic pain syndrome. CURE report from pharmacy requested. Patient requested pain medication and nausea medication which is ordered. Patient is started on alcohol withdrawal protocol due to her past medical history of acute necrotizing pancreatitis and current use of alcohol. Maturity Checker consult requested. cystic lesions in the head of the pancreas measuring up to 21 mm. Hypoenhancement in the tail of the pancreas present in CT abdomen likely due to h/o pancreatitis. Code status discussed with the patient patient wishes to stay full code time spent in discussing code status 16 minutes. We will do home medication reconciliation once updated in electronic medical records. Patient's current condition is guarded further management depending on response to treatment. We will continue to follow patient in AM . Date of Service: May 11, 2025 Billing Provider: SANTY AGGARWAL MD Common Visit Codes: [id number] INP/OBS CARE (HIGH) Secondary Visit Codes: [id number] CARE PLAN 30 MINUTES SANTY AGGARWAL MD May 11, 2025 18:46
[2025-05-11 19:03] LABS: URINE AMPHETAMINE SCREEN NEGATIVE (Neg); URINE BARBITUATE SCREEN POSITIVE (Neg); URINE BENZODIAZEPINES SCREEN NEGATIVE (Neg); URINE CANNABINOID SCREEN NEGATIVE (Neg); URINE COCAINE SCREEN NEGATIVE (Neg); URINE METHADONE SCREEN NEGATIVE (Neg); URINE OPIATE SCREEN POSITIVE (Neg); URINE PHENCYCLIDINE SCREEN NEGATIVE (Neg)
[2025-05-11] MEDS: normal saline 1000ml 1,000 ML IV SCH (19:24)
[2025-05-11] MEDS: ciprofloxacin lact 400MG/200ML 200 ML IV SCH (20:30)
[2025-05-11] MEDS: heparin, porcine 5000 units/ml vial SQ SCH (20:31)
[2025-05-11] MEDS: ondansetron/PF 4mg/2ml inj IV PRN (20:31)
[2025-05-11] MEDS: metroNIDAZOLE-Flagyl 500mg/NS 100 ML IV SCH (22:04)
[2025-05-11 22:30] VITALS: BP 154/104; PULSE 82; RESP 16; TEMP 98; O2SAT 98
[2025-05-12] MEDS: potassium Cl 40MEQ/1/2NS 520ml 520 ML IV PRN (00:08)
[2025-05-12] MEDS: potassium Cl 40MEQ/1/2NS 520ml 520 ML IV ONE (00:09)
[2025-05-12 05:02] LABS: MEAN PLATELET VOLUME 8.6 FL (7.4-10.4); RED CELL DISTRIBUTION WIDTH 14.7 % (11.5-14.5)
[2025-05-12 05:38] LABS: CREATININE 0.81 MG/DL (0.40-0.90); PHOSPHORUS 2.6 MG/DL (2.3-4.5); TOTAL CARBON DIOXIDE 26.2 MMOL/L (24-32); eCRCL 58 ML/MIN; eGFR 78 ML/MIN
[2025-05-12 06:00] VITALS: BP 128/88; PULSE 59; RESP 14; TEMP 98.8; O2SAT 100
[2025-05-12] MEDS: multivitamins, therapeutics tablet PO SCH (07:31)
[2025-05-12] MEDS: ondansetron/PF 4mg/2ml inj IV PRN (07:43)
[2025-05-12 10:00] VITALS: BP 129/96; PULSE 75; RESP 18; TEMP 97.5; O2SAT 100
[2025-05-12 18:00] VITALS: BP 151/97; PULSE 68; RESP 17; TEMP 97.2; O2SAT 100
[2025-05-12 19:48] VITALS: RESP 16; O2SAT 94
--- NOTE | 2025-05-12 21:02 | PROGRESS NOTE ---
Daily Progress Note Providers to CC ~ Antibiotic Timeout Antibiotic Ordered?: Yes Subjective Patient was seen in her room she is feeling better since yesterday. Potassium replacement we will continue to do as her potassium is still low. Objective Vital Signs Date Time Temp Pulse Resp B/P (MAP) Pulse Ox O2 Delivery O2 Flow Rate FiO2 05/12/25 19:48 16 94 Room Air 0.0 05/12/25 18:30 76 05/12/25 10:00 97.5 129/96 (107) Result Diagram: 05/12/25 0434 05/12/25 1217 General-patient not in any acute distress, alert awake oriented, chronically ill-appearing HEENT-atraumatic normocephalic, neck supple without elevated JVD, no thyromegaly or carotid bruit. No lymphadenopathy bilaterally. Eyes-no icterus or pallor seen in eyes Chest-clear to auscultation bilaterally, breathing nonlabored no tachypnea, no wheezing, no crepitation, no crackles. Heart-S1-S2 normal, regular heart rate no murmur Abdomen bowel sounds positive on auscultation, soft nondistended nontender no guarding, no rigidity. Subjective discomfort over lower abdomen on palpation Skin no active skin rash Neurology-grossly intact, nonfocal alert awake oriented Extremity- no pedal edema able to move all 4 extremities Psychiatry - patient is not confused or agitated cooperated during physical examination Coagulation Studies Laboratory Tests Test 05/11/25 11:14 Prothrombin Time 14.9 SECONDS (9.0-12.0) H INR International Normalized Ratio 1.5 INR Coagulation Comments Problem\Assessment\Plan Patient is 44-year-old female with history of acute necrotizing pancreatitis secondary to alcohol use, complex regional pain syndrome with stimulator placement, history of chronic headache. Patient is here in ER with her concern regarding vomiting nausea and diarrhea Further workup done in ER her potassium was 1.6 in signs of acute kidney injury noticed hospitalist services contacted for admission and further admission. # hypokalemia generalized weakness , nausea vomiting and diarrhea . We will do the replacement of potassium as per protocol. Patient is tolerating full liquid diet Patient requested pain medication and nausea medication which is ordered. # acute kidney injury- resolved , on IV fluid for acute kidney injury. # we will continue to monitor patient's chronic morbidity including chronic pain syndrome. CURE report from pharmacy requested. # chronic pancreatitis, Patient is started on alcohol withdrawal protocol due to her past medical history of acute necrotizing pancreatitis and current use of alcohol. Bus Repair Supervisor consult requested. cystic lesions in the head of the pancreas measuring up to 21 mm. Hypoenhancement in the tail of the pancreas present in CT abdomen likely due to h/o pancreatitis. # Code status discussed with the patient patient wishes to stay full code Patient's current condition is guarded further management depending on response to treatment. We will continue to follow patient in AM . Date of Service: May 12, 2025 Billing Provider: SANTY AGGARWAL MD Common Visit Codes: [id number] INP/OBS CARE(HIGH) SANTY AGGARWAL MD May 12, 2025 21:02
[2025-05-12] MEDS: HYDROcodone/acetaminophen 10/325mg tab PO PRN (21:31)
[2025-05-12 22:00] VITALS: BP 125/93; PULSE 75; RESP 13; TEMP 98; O2SAT 100
[2025-05-13 02:04] LABS: MEAN PLATELET VOLUME 8.1 FL (7.4-10.4); RED CELL DISTRIBUTION WIDTH 14.9 % (11.5-14.5)
[2025-05-13 02:13] LABS: CREATININE 0.67 MG/DL (0.40-0.90); PHOSPHORUS 2.2 MG/DL (2.3-4.5); TOTAL CARBON DIOXIDE 20.3 MMOL/L (24-32); eCRCL 70 ML/MIN; eGFR > 90 ML/MIN
[2025-05-13] MEDS: potassium Cl 20 mEq SR tablet PO PRN (02:32)
[2025-05-13 03:44] LABS: EOSINOPHILS % (MANUAL) 3 % (0-6); LYMPHOCYTES % (MANUAL) 45 % (21-51); MONOCYTES % (MANUAL) 10 % (2-12); NEUTROPHILS % (MANUAL) 42 % (42-75)
[2025-05-13 03:45] LABS: LARGE PLATELETS FEW; PLATELET ESTIMATE NORMAL
[2025-05-13 05:00] VITALS: BP 126/87; PULSE 65; RESP 16; TEMP 97.6; O2SAT 94
[2025-05-13] MEDS: potassium Cl 20 mEq SR tablet PO SCH (08:45)
[2025-05-13 10:00] VITALS: BP 115/81; PULSE 71; RESP 14; TEMP 97.9; O2SAT 100
[2025-05-13] MEDS ORDERED: normal saline 1000ml 1,000 ML IV SCH (13:40)
[2025-05-13] MEDS: normal saline 1000ml 1,000 ML IV SCH (14:08)
[2025-05-13 18:00] VITALS: BP 136/101; PULSE 73; RESP 16; TEMP 98.3; O2SAT 99
[2025-05-13] MEDS: lactose-reduced food (Ensure Enlive) - 237ml bottle PO SCH (18:14)
[2025-05-13 18:48] VITALS: RESP 16; O2SAT 95
--- NOTE | 2025-05-13 19:08 | PROGRESS NOTE ---
Daily Progress Note Providers to CC ~ Antibiotic Timeout Antibiotic Ordered?: No Subjective Was seen in her room her potassium is still low we will do the replacement of potassium as per protocol. Patient feels pain over lower abdomen Objective Vital Signs Date Time Temp Pulse Resp B/P (MAP) Pulse Ox O2 Delivery O2 Flow Rate FiO2 05/13/25 18:48 16 95 Room Air 0.0 05/13/25 18:30 77 05/13/25 18:00 98.3 136/101 (113) Result Diagram: 05/13/25 0150 05/13/25 0150 General-patient not in any acute distress, alert awake oriented, chronically ill-appearing HEENT-atraumatic normocephalic, neck supple without elevated JVD, no thyromegaly or carotid bruit. No lymphadenopathy bilaterally. Eyes-no icterus or pallor seen in eyes Chest-clear to auscultation bilaterally, breathing nonlabored no tachypnea, no wheezing, no crepitation, no crackles. Heart-S1-S2 normal, regular heart rate no murmur Abdomen bowel sounds positive on auscultation, soft nondistended nontender no guarding, no rigidity. Subjective discomfort over lower abdomen on palpation Skin no active skin rash Neurology-grossly intact, nonfocal alert awake oriented Extremity- no pedal edema able to move all 4 extremities Psychiatry - patient is not confused or agitated cooperated during physical examination Coagulation Studies Laboratory Tests Test 05/11/25 11:14 Prothrombin Time 14.9 SECONDS (9.0-12.0) H INR International Normalized Ratio 1.5 INR Coagulation Comments Problem\Assessment\Plan Patient is 44-year-old female with history of acute necrotizing pancreatitis secondary to alcohol use, complex regional pain syndrome with stimulator placement, history of chronic headache. Patient is here in ER with her concern regarding vomiting nausea and diarrhea Further workup done in ER her potassium was 1.6 in signs of acute kidney injury noticed hospitalist services contacted for admission and further admission. # hypokalemia generalized weakness , nausea vomiting and diarrhea . We will do the replacement of potassium as per protocol. Patient is tolerating full liquid diet Patient requested pain medication and nausea medication which is ordered. # acute kidney injury- resolved , on IV fluid for acute kidney injury. # we will continue to monitor patient's chronic morbidity including chronic pain syndrome. CURE report from pharmacy requested. # chronic pancreatitis, Patient is started on alcohol withdrawal protocol due to her past medical history of acute necrotizing pancreatitis and current use of alcohol. [employer] consult requested. cystic lesions in the head of the pancreas measuring up to 21 mm. Hypoenhancement in the tail of the pancreas present in CT abdomen likely due to h/o pancreatitis. # Code status discussed with the patient patient wishes to stay full code Patient's current condition is guarded further management depending on response to treatment. We will continue to follow patient in AM . Date of Service: May 13, 2025 Billing Provider: SANTY AGGARWAL MD Common Visit Codes: [id number] INP/OBS CARE(HIGH) SANTY AGGARWAL MD May 13, 2025 19:08
[2025-05-13] MEDS ORDERED: loperamide 2mg capsule PO PRN (19:10)
[2025-05-13 22:00] VITALS: BP 128/93; PULSE 69; RESP 15; TEMP 97.2; O2SAT 100
[2025-05-14 05:00] VITALS: BP 149/112; PULSE 78; RESP 16; TEMP 97.9; O2SAT 99
[2025-05-14 10:00] VITALS: BP 159/102; PULSE 73; RESP 13; TEMP 96.9; O2SAT 100
[2025-05-14] MEDS ORDERED: thiamine tablet PO (10:04)
[2025-05-14] MEDS ORDERED: MULT-25 PO (10:04)
[2025-05-14] MEDS ORDERED: FOLI1TAB27 PO (10:04)
[2025-05-14] MEDS ORDERED: LOPE2CAP PO (10:04)
[2025-05-14 11:16] LABS: MEAN PLATELET VOLUME 8.9 FL (7.4-10.4); RED CELL DISTRIBUTION WIDTH 14.6 % (11.5-14.5)
[2025-05-14 11:25] LABS: CREATININE 0.79 MG/DL (0.40-0.90); TOTAL CARBON DIOXIDE 23.4 MMOL/L (24-32); eCRCL 59 ML/MIN; eGFR 80 ML/MIN
[2025-05-14 11:36] LABS: EOSINOPHILS % (MANUAL) 5.0 % (0-6); LYMPHOCYTES % (MANUAL) 31.0 % (21-51); MONOCYTES % (MANUAL) 9.0 % (2-12); NEUTROPHILS % (MANUAL) 55.0 % (42-75); PLATELET ESTIMATE NORMAL
[2025-05-14] MEDS ORDERED: CIPR-259 PO (14:34)
[2025-05-14] MEDS ORDERED: ACET-1008 PO (15:31)
[2025-05-14] MEDS ORDERED: PANT40TA54 PO (15:34)
[2025-05-14] MEDS ORDERED: IBUP-1985 PO (15:34)
[2025-05-14] MEDS ORDERED: METR-159 PO (17:20)
--- NOTE | 2025-05-14 17:28 | DISCHARGE SUMMARY ---
Discharge Summary Providers to CC ~ Discharge Summary Admission Diagnosis: Acute colitis, chronic pain syndrome, hypokalemia Hospital Course DATE OF ADMISSION: May 11, 2025 DATE OF DISCHARGE: May 14, 2025 CBC testing done on May 14, 2025 WBC 2.6 hemoglobin 11.9 hematocrit 35.9 platelet count 186 sed rate 2, potassium 3.7 procalcitonin 0.05 lipase 24 AST 63 total bilirubin 0.5 ALT 25. Lactic acid 1.1. Blood culture showed no growth after two days. CT ABDOMEN PELVIS-IMPRESSION: 1. No acute abdominal or pelvic finding. 2. Cystic lesions in the head of the pancreas measuring up to 21 mm. Hypoenhancement in the tail of the pancreas. Recommend MRI of the abdomen with contrast for further evaluation. 3. Diffuse hepatic steatosis. Diffuse wall thickening of the colon could be due to infectious or inflammatory colitis. Clinical correlation and continued follow-up is recommended. Discharge Diagnosis\\Comment: history of acute necrotizing pancreatitis secondary to alcohol use, complex regional pain syndrome with stimulator placement, history of chronic headache. hypokalemia generalized weakness , nausea vomiting and diarrhea acute kidney injury- resolved , alcohol use. cystic lesions in the head of the pancreas measuring up to 21 mm. Hypoenhancement in the tail of the pancreas present in CT abdomen likely due to h/o pancreatitis. Operations\\Procedures: None Consultants: None Complications: None Condition on DC: Stable New Medications: Ciprofloxacin HCl (Cipro) 500 Mg Tablet 1 TAB PO Q12H for 5 Days, #10 TAB Ibuprofen (Ibuprofen) 600 Mg Tablet 1 TAB PO Q8H for pain for 5 Days, #15 TAB 0 Refills with food Metronidazole* (Flagyl*) 500 Mg Tablet 1 TAB PO BID for 5 Days, #10 TAB Pantoprazole Sodium (Pantoprazole Sodium) 40 Mg Tablet.dr 40 MG PO BKF for 7 Days, #7 TAB.SR Folic Acid* (Folic Acid*) Y Tab 1 MG PO DAILY for 30 Days, #30 TAB Loperamide Hcl (Loperamide) 2 Mg Capsule 2 MG PO Q6H PRN for LOOSE STOOLS for 5 Days, #20 CAP Multivitamin with Folic Acid (Thera Tablet) 400 Mcg Tablet 1 EACH PO Q24H for 30 Days, #30 TAB [thiamine tablet] () 100 MG TABLET 100 MG PO DAILY for 30 Days, #30 Changed Medications: Acetaminophen (Tylenol) 325 Mg Tablet 1 TAB PO Q6H PRN for pain or fever for 7 Days, #28 TAB (Changed from: Q4HPRN; 10 0; 24) Discontinued Medications: Home Med List (No Home Medications) Each Discharge Summary: As per my admitting history and physical note" Patient is 44-year-old female with history of acute necrotizing pancreatitis secondary to alcohol use, complex regional pain syndrome with stimulator placement, history of chronic headache. Patient is here in ER with her concern regarding vomiting nausea and diarrhea which is going on since last 10 day ( she waited to see if her symptoms will get better) she feels that she gets these symptoms off and on but it gets better. Patient feels pain over upper abdomen which is like a stabbing pain. Her stools are watery like a cabbage soup. She mentioned that she is passing 328 stools per day. Patient is nauseated but no fever noticed. Patient has generalized abdominal pain but at the same time she has chronic pain syndrome and chronic pancreatitis too. Patient is unable to provide me any medication list but she mentioned that she is taking [place] leftover tablets from August 2024 which was prescribed to her in her last visit. Patient does not have any primary care physician or specialist at this point of time and she mentioned nobody wants to take her anymore as a patient. She is drinking mixed vodka occasionally unable to recall when was the last drink she had ( she has history of acute necrotizing pancreatitis in her last visit August 26, 2024) . Denied use of any tobacco or any recreational drugs. Further workup done in ER her potassium was 1.6 in signs of acute kidney injury noticed hospitalist services contacted for admission and further admission. Patient's urine HCG was positive but her serum beta HCG was negative we will repeat urine HCG. 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 Currently staying with her mom for couple of week. She can ambulate. Patient also mentioned that she gets chest pain chronic headache and numbness and tingling sensation besides what is mentioned above. During hospitalization patient was treated for Patient is 44-year-old female with history of acute necrotizing pancreatitis secondary to alcohol use, complex regional pain syndrome with stimulator placement, history of chronic headache. Patient is here in ER with her concern regarding vomiting nausea and diarrhea Further workup done in ER her potassium was 1.6 in signs of acute kidney injury noticed hospitalist services contacted for admission and further admission. # hypokalemia generalized weakness , nausea vomiting and diarrhea . We will do the replacement of potassium as per protocol. Patient is tolerating full liquid diet Patient requested pain medication and nausea medication which is ordered. Hypokalemia resolved # acute kidney injury- resolved , on IV fluid for acute kidney injury. # we will continued to monitor patient's chronic morbidity including chronic pain syndrome. CURE report from pharmacy requested. # chronic pancreatitis, Patient is started on alcohol withdrawal protocol due to her past medical history of acute necrotizing pancreatitis and current use of alcohol. [employer] consult requested. cystic lesions in the head of the pancreas measuring up to 21 mm. Hypoenhancement in the tail of the pancreas present in CT abdomen likely due to h/o pancreatitis. Patient's clinical condition stable throughout the hospitalization. She has been afebrile and getting discharged home in stable condition. Patient is seen and examined on the day of discharge. Discharge instructions provided to the patient. All questions and concerns answered to the best of my professional medical knowledge.PLEASE FOLLOW-UP WITH PRIMARY CARE PHYSICIAN IN OUTPATIENT SETTING. PLEASE REPEAT CBC ,BMP ,SED RATE AND PROCALCITONIN IN FIVE DAYS WITH PCP. CONTINUE TO HYDRATE MORE THAN 1000 ML PER DAY. ACTIVITY TOLERATED. cystic lesions in the head of the pancreas measuring up to 21 mm. Hypoenhancement in the tail of the pancreas present in CT abdomen further management in outpatient setting as per primary care physician. General-patient not in any acute distress, alert awake oriented, chronically ill-appearing HEENT-atraumatic normocephalic, neck supple without elevated JVD, no thyromegaly or carotid bruit. No lymphadenopathy bilaterally. Eyes-no icterus or pallor seen in eyes Chest-clear to auscultation bilaterally, breathing nonlabored no tachypnea, no wheezing, no crepitation, no crackles. Heart-S1-S2 normal, regular heart rate no murmur Abdomen bowel sounds positive on auscultation, soft nondistended nontender no guarding, no rigidity. Subjective discomfort over lower abdomen on palpation Skin no active skin rash Neurology-grossly intact, nonfocal alert awake oriented Extremity- no pedal edema able to move all 4 extremities Psychiatry - patient is not confused or agitated cooperated during physical examination *Problems/Diagnosis: (1) Colitis Status: Acute (2) Vomiting and diarrhea Status: Acute Total Time Spent on D/C: > 30 Minutes Date of Service: May 14, 2025 Billing Provider: SANTY AGGARWAL MD Common Visit Codes: [id number] INP/OBS CARE(HIGH) SANTY AGGARWAL MD May 14, 2025 17:24
== END 2025-05-14 15:35 | disposition home or self-care (01) | DRG 249 ==
LOC: ER 10:41 → ED HOLD 18:30 → ORTHO 4S 22:35
PROVIDERS: ADMIT Internal Medicine; ATTEND Internal Medicine
PROC: BW211ZZ Computerized Tomography (CT Scan) of Abdomen and Pelvis using Low Osmolar Contrast (ICD-10-PCS; principal; 2025-05-11)
DX: K52.9 Noninfective gastroenteritis and colitis, unspecified (principal); N17.9 Acute kidney failure, unspecified; E87.6 Hypokalemia; K86.1 Other chronic pancreatitis; G89.4 Chronic pain syndrome
CPT/HCPCS: 36415; 74177; 80048; 80053; 80305; 81001; 81025; 82272; 83605; 83690; 83735; 84100; 84132; 84145; 84702; 85007; 85025; 85610; 85651; 87040; 87081; 92508; 93005; 96361; 96365; 96367; 96375; 99285; G0378; J0744; J1644; J2060; J2270; J2405; J2470; J2543; J3480; J3490; J7030; J7040; Q9967